=== PATIENT | male | born 1950 | race Caucasian/White ===

== ENCOUNTER 2018-06-26 13:46 | Day surgery (SDC) | payer MEDICARE ==
[2018-06-25 16:51] LABS: BASOPHILS % (AUTO) 0.5 % (0-1); EOSINOPHILS # (AUTO) 0.1 X10'3 (0-0.9); EOSINOPHILS % (AUTO) 2.2 % (0-6); HEMOGLOBIN 15.4 g/dl (14.0-17.9); LYMPHOCYTES # (AUTO) 1.9 X10'3 (1.1-4.8); MEAN CORPUSCULAR HEMOGLOBIN 33.6 PG (27.0-31.0); MEAN CORPUSCULAR HGB CONC 34.3 % (33.0-36.5); MEAN PLATELET VOLUME 8.1 FL (7.4-10.4); MONOCYTES % (AUTO) 17.7 % (2-12); NEUTROPHILS # (AUTO) 2.8 X10'3 (1.8-7.7); NEUTROPHILS % (AUTO) 47.6 % (42-75); PLATELET COUNT 215 X10'3 (140-440); RED BLOOD COUNT 4.59 X10'6 (4.70-6.10); RED CELL DISTRIBUTION WIDTH 14.2 % (11.5-14.5); WHITE BLOOD COUNT 5.8 X10'3 (4.5-11.0)
[2018-06-25 16:56] LABS: INR 1.1 INR; PARTIAL THROMBOPLASTIN TIME 31 SECONDS (22-32); PROTHROMBIN TIME 11.4 SECONDS (9.0-12.0)
[2018-06-25 16:57] LABS: ALBUMIN 4.3 G/DL (3.4-5.0); ANION GAP 13 (8-16); BLOOD UREA NITROGEN 17 MG/DL (7-18); BUN/CREATININE RATIO 21.8 (5.4-32.0); CALCIUM 9.3 MG/DL (8.5-10.1); CHLORIDE 103 MMOL/L (99-107); CREATININE 0.78 MG/DL (0.60-1.10); GLUCOSE 85 MG/DL (70-104); SODIUM 140 MMOL/L (135-145); TOTAL CARBON DIOXIDE 24.5 MMOL/L (24-32); eGFR > 90 ML/MIN
[2018-06-25 17:00] VITALS: BP 140/94
[2018-06-26] VITALS (14 sets, daily range): BP systolic 132–150; BP diastolic 86–100
[~2018-06-26] VITALS: Ht 182.9 cm; Wt 103.2 kg
[2018-06-26] MEDS ORDERED: fentaNYL/PF 50MCG/1 ML 2ML syringe IV ONE (14:10)
[2018-06-26] MEDS ORDERED: MIDAZolam 5mg/ml 2ml vial IV ONE (14:10)
[2018-06-26] MEDS ORDERED: normal saline 1000ml 1,000 ML IV SCH (14:10)
[2018-06-26] MEDS ORDERED: BENA20TA82 PO (14:39)
[2018-06-26] MEDS ORDERED: NEBI10TA2 PO (14:39)
[2018-06-26] MEDS ORDERED: APIX5TAB3 PO (14:39)
[2018-06-26] MEDS ORDERED: ALPR-624 PO (14:39)
[2018-06-26] MEDS ORDERED: SPIR25TA PO (14:39)
[2018-06-26] MEDS ORDERED: pneumococcal 23-VAL P-sac vacc 25 mcg/0.5ml vial IMVAC ONE (15:50)
== END 2018-06-26 18:00 | disposition home or self-care (01) ==
LOC: SSTAY O 13:46
PROVIDERS: ATTEND Internal Medicine Interventional Cardiology
DX: I48.0 Paroxysmal atrial fibrillation (principal); I10 Essential (primary) hypertension; F41.9 Anxiety disorder, unspecified; I27.20 Pulmonary hypertension, unspecified; Z87.891 Personal history of nicotine dependence; Z53.8 Procedure and treatment not carried out for other reasons
CPT/HCPCS: 36415; 80048; 85025; 85610; 85730; 90732; 93005; J2250; J3010; J7030; A4620

== ENCOUNTER 2021-03-11 06:00 | Day surgery (SDC) | payer MEDICARE ==
[2021-03-07 14:59] LABS: BASOPHILS # (AUTO) 0.1 X10'3 (0-0.2); BASOPHILS % (AUTO) 0.9 % (0-1); EOSINOPHILS # (AUTO) 0.2 X10'3 (0-0.9); EOSINOPHILS % (AUTO) 2.1 % (0-6); LYMPHOCYTES % (AUTO) 26.2 % (21-51); MEAN CORPUSCULAR HEMOGLOBIN 33.4 PG (27.0-31.0); MEAN CORPUSCULAR HGB CONC 33.9 g/dL (33.0-36.5); MEAN CORPUSCULAR VOLUME 98.4 FL (78-98); MONOCYTES # (AUTO) 1.1 X10'3 (0-0.9); MONOCYTES % (AUTO) 14.1 % (2-12); NEUTROPHILS # (AUTO) 4.4 X10'3 (1.8-7.7); NEUTROPHILS % (AUTO) 56.7 % (42-75); PRE OP HEMATOCRIT 44.3 % (42.0-52.0); PRE OP PLATELET COUNT 184 X10'3 (140-440); RED CELL DISTRIBUTION WIDTH 12.9 % (11.5-14.5)
[2021-03-07 15:14] LABS: ALBUMIN 4.1 G/DL (3.4-5.0); ALBUMIN/GLOBULIN RATIO 1.4 (1.1-1.5); ALKALINE PHOSPHATASE 52 IU/L (46-116); BLOOD UREA NITROGEN 26 MG/DL (7-18); BUN/CREATININE RATIO 21.1 (5.4-32.0); CALCIUM 8.9 MG/DL (8.5-10.1); CHLORIDE 106 MMOL/L (99-107); CREATININE 1.23 MG/DL (0.60-1.10); PRE OP ALT 34 U/L (30-65); PRE OP ANION GAP 11 (8-16); PRE OP AST 19 U/L (10-37); PRE OP BILIRUB, TOTAL 1.1 MG/DL (0.0-1.0); PRE OP GLUCOSE 93 MG/DL (70-104); PRE OP POTASSIUM 4.2 MMOL/L (3.4-5.1); PRE OP SODIUM 142 MMOL/L (135-145); TOTAL CARBON DIOXIDE 25.3 MMOL/L (24-32); TOTAL PROTEIN 7.1 G/DL (6.4-8.2); eGFR 58 ML/MIN
[~2021-03-11] VITALS: Ht 182.9 cm; Wt 102.0 kg
[~2021-03-11 06:00] MED LIST: ALPR-624 PO; BENA20TA82 PO; DOCUMENT DATE & TIME OF BETA-BLOCKER PO ONE; NAPR220C15 PO; NEBI10TA2 PO; SPIR25TA PO; cefazolin/dext.iso 2gm/100ml IV ONE; famotidine 20mg tablet PO ONE; ringers solution, lacted 1,000 ML IV SCH
[2021-03-11] MEDS ORDERED: BUPIVAcaine/PF 2.5mg/ml (0.25%) 10ml vial ONE (06:54)
[2021-03-11 07:02] VITALS: BP 111/74
[2021-03-11] MEDS ORDERED: LIDOcaine 1% 30ml preserv. free vial ONE (07:14)
[2021-03-11] MEDS ORDERED: ketorolac trometh. 30mg/ml inj. ONE (07:40)
[2021-03-11] MEDS ORDERED: fentaNYL/PF 50MCG/1 ML 2ML syringe ONE ×2 (07:40→09:01)
[2021-03-11] MEDS ORDERED: midazolam 1 mg/ML 2ml injection ONE (07:40)
[2021-03-11] MEDS ORDERED: BUPIVAcaine/PF 2.5mg/ml (0.25%) 10ml vial IJ ONE (08:31)
[2021-03-11 08:43] VITALS: BP 138/80
--- NOTE | 2021-03-11 08:43 | NUR ---
Received from OR via [facility], accompanied by Anesthesiologist SUREKHA and report given by Anesthesiolgist. VSS. 96% ON RA. DISTAL PULSES INTACT. ABLE TO MOVE ALL EXTREMITIES. DENIES PAIN. IV IN L. HAND 20 G. CDI WITH LR INFUSING AT 100 ML/HR. DRESSING TO R. WRIST CDI. ICE APPLIED. SENSATION INTACT. GOOD MOVEMENT. Addendum: 03/11/21 at 1141 by Rachna Roldan RN Amended: Links added.
[2021-03-11 08:50] VITALS: BP 130/77
[2021-03-11 09:00] VITALS: BP 137/85
[2021-03-11] MEDS ORDERED: MIDAZolam 1 MG/ML 5ML VIAL ONE (09:01)
[2021-03-11 09:10] VITALS: BP 123/81
--- NOTE | 2021-03-11 09:33 | NUR ---
PT. MET ALL DISCHARGE CRITERIA. VSS. DENIED PAIN. INSTRUCTIONS GIVEN. PT. STATES UNDERSTANDING. PT. GIVEN OPPORTUNITY TO ASK QUESTIONS. IV IN L. HAND REMOVED NO S/S OF INFECTION OR REDNESS. R. HAND DRESSING CDI. PT. ABLE TO TOLERATE FLUIDS AND AMBULATE TO . TRANSFERRED TO PRIVATE VEHICLE VIA . LEFT WITH GLASSES AND PHONE. Addendum: 03/11/21 at 0937 by Rachna Roldan RN Amended: Links added.
== END 2021-03-11 09:33 | disposition home or self-care (01) ==
LOC: PAS 06:00
PROVIDERS: ATTEND Orthopaedic Surgery Hand Surgery
DX: G56.01 Carpal tunnel syndrome, right upper limb (principal); G47.30 Sleep apnea, unspecified; I10 Essential (primary) hypertension; M19.90 Unspecified osteoarthritis, unspecified site; Z85.820 Personal history of malignant melanoma of skin; Z79.899 Other long term (current) drug therapy; Z79.01 Long term (current) use of anticoagulants; Z98.890 Other specified postprocedural states; Z72.89 Other problems related to lifestyle; Z96.652 Presence of left artificial knee joint; Z87.891 Personal history of nicotine dependence; Z82.49 Family history of ischemic heart disease and other diseases of the circulatory system
CPT/HCPCS: 36415; 64721; 80053; 82948; 85025; 93005; J1885; J2001; J2250; J3010; J3490; A4215; A6449; J7120

== ENCOUNTER 2021-05-06 11:49 | Day surgery (SDC) | payer MEDICARE ==
[~2021-05-06] VITALS: Ht 182.9 cm; Wt 102.0 kg
[2021-05-06] MEDS ORDERED: BUPIVAcaine 0.5% inj/PF 30 ML ONE (13:00)
[2021-05-06] MEDS ORDERED: BUPIVAcaine/PF 2.5mg/ml (0.25%) 10ml vial ONE (13:06)
[2021-05-06 13:40] VITALS: BP 132/78
[2021-05-06] MEDS ORDERED: hydrALAZINE 20mg/ml inj. IV PRN (13:45)
[2021-05-06] MEDS ORDERED: acetaminophen 1,000mg/100ml IV 100 ML IV PRN (13:45)
[2021-05-06] MEDS ORDERED: morphine 4 MG/ML inj SYRINge IV PRN (13:45)
[2021-05-06] MEDS ORDERED: morphine 2 MG/ML inj. syringe IV PRN (13:45)
[2021-05-06] MEDS ORDERED: proCHLORperazine 10 MG/2 ml inj IV PRN (13:45)
[2021-05-06] MEDS ORDERED: ondansetron/PF 4mg/2ml inj IV PRN (13:45)
[2021-05-06] MEDS ORDERED: labetalol 20mg/4ml (5mg/ml) syringe IV PRN (13:45)
[2021-05-06] MEDS ORDERED: ringers solution, lacted 1,000 ML IV SCH (13:45)
[2021-05-06] MEDS ORDERED: meperidine/PF 25mg/ml syringe IV PRN ×3 (13:45)
[2021-05-06] MEDS ORDERED: propofol 10mg/ml 20ml vial IV ONE (14:22)
[2021-05-06] MEDS ORDERED: fentaNYL/PF 50MCG/1 ML 2ML syringe ONE (14:26)
[2021-05-06] MEDS ORDERED: midazolam 1 mg/ML 2ml injection ONE (14:26)
[2021-05-06 14:54] VITALS: BP 144/90
--- NOTE | 2021-05-06 14:54 | NUR ---
Received from OR via , accompanied by Anesthesiologist DR ASCENCIO and report given by Anesthesiolgist. AWAKENS TO VOICE. VITALS STABLE. DRESSING DI. [place] PAIN. FINGERS WARM AND PINK.
[2021-05-06 15:04] VITALS: BP 133/86
[2021-05-06 15:14] VITALS: BP 134/84
[2021-05-06 15:24] VITALS: BP 142/88
--- NOTE | 2021-05-06 15:44 | NUR ---
AWAKE AND ORIENTED. VITALS STABLE. DRESSING DI. [place] PAIN. HOME WITH HIS AT THIS TIME.
== END 2021-05-06 15:44 | disposition home or self-care (01) ==
LOC: PAS 11:49
PROVIDERS: ATTEND Orthopaedic Surgery Hand Surgery
DX: G56.02 Carpal tunnel syndrome, left upper limb (principal); G47.33 Obstructive sleep apnea (adult) (pediatric); I10 Essential (primary) hypertension; Z20.822 Contact with and (suspected) exposure to COVID-19; M19.90 Unspecified osteoarthritis, unspecified site; Z79.899 Other long term (current) drug therapy; Z79.01 Long term (current) use of anticoagulants; Z72.89 Other problems related to lifestyle; Z98.890 Other specified postprocedural states; Z96.652 Presence of left artificial knee joint; Z85.828 Personal history of other malignant neoplasm of skin; Z85.820 Personal history of malignant melanoma of skin; Z87.891 Personal history of nicotine dependence; Z82.49 Family history of ischemic heart disease and other diseases of the circulatory system
CPT/HCPCS: 64721; 82948; 87635; C9803; J2250; J2704; J3010; J3490; Z7506; Z7512; A4215; J7120